=== PATIENT | male | born 1960 | race Caucasian/White ===

== ENCOUNTER → 2023-04-08 | Day surgery (SDC) | payer OTHER ==
[2023-04-08] VITALS (11 sets, daily range): BP systolic 118–152; BP diastolic 56–99; PULSE 50–66; RESP 15–20; TEMP 96.7–97.1; O2SAT 93–100
[~2023-04-08] VITALS: Ht 180.3 cm; Wt 124.3 kg
[~2023-04-08] MED LIST: ALLOPURINOL300 MG PO; ALPRAZOLAM 0.5 MG TAB ONE; AMLODIPINE BESYL5 MG PO; ASPIRIN81 MG PO; ATORVASTATIN CA20 MG PO; DIPHENHYDRAMINE HCL 25 MG CAP ONE; FENTANYL CITRATE/PF 100MCG/2 ML INJ ONE; HEPARIN SOD (PORCINE) 1000 UNIT/ML 30ML ONE; HEPARIN SOD/SOD CHLORIDE 2,000 ML ONE; IOPAMIDOL 370 MG/ML 100 ML INFUS..BTL INJ ONE; LASIX20 MG PO; LIDOCAINE HCL 2% LOCAL 20 ML VIAL ONE; MIDAZOLAM HCL 2 MG/2 ML VIAL ONE; NITROGLYCERIN/D5W 200 MCG/ML 250 ML ONE; SODIUM CHLORIDE 0.9% 1000ML 1,000 ML ONE; VERAPAMIL HCL 2.5 MG/ML 2 ML VIAL ONE
== END | disposition home or self-care (01) ==
LOC: CATH LAB 10:29
PROVIDERS: ATTEND Internal Medicine Cardiovascular Disease
DX: I20.0 Unstable angina (principal); I10 Essential (primary) hypertension; E78.5 Hyperlipidemia, unspecified; E66.01 Morbid (severe) obesity due to excess calories; Z79.82 Long term (current) use of aspirin; Z79.899 Other long term (current) drug therapy; Z68.38 Body mass index [BMI] 38.0-38.9, adult
CPT/HCPCS: 93458; C1887; J1644; J2001; J2250; J3010; J7030; Q9967; 99152; 99153